=== PATIENT | male | born 1990 | race Caucasian/White ===

== ENCOUNTER 2022-07-31 08:20 | Outpatient (REF) | payer OTHER, SELFPAY ==
[2022-07-31 09:17] LABS: Hematocrit 45.2 % (42.0-52.0); Mean Corpuscular HGB Conc 33.2 g/dl (31.0-36.0); Mean Corpuscular Hemoglobin 30.4 pg (27.0-33.0); Mean Corpuscular Volume 91.7 fL (80.0-98.0); Mean Platelet Volume 10.7 fL (9.4-12.4); Platelet Count 314 X10*3/uL (160-400); Red Blood Count 4.93 X10*6/uL (4.60-5.80); Red Cell Distribution Width 12.4 % (11.0-16.0); White Blood Count 12.8 X10*3/uL (4.8-10.8)
[2022-07-31 09:43] LABS: Estimated Average Glucose 94 mg/dL; Hemoglobin A1c % 4.9 %
[2022-07-31 09:58] LABS: Alanine Aminotransferase 44 U/L (0-40); Albumin Level 4.3 g/dL (3.5-5.0); Alkaline Phosphatase 97 U/L (39-117); Anion Gap 13 (12-20); Aspartate Amino Transferase 23 U/L (5-37); Bilirubin Total 0.9 mg/dL (0.0-1.0); Blood Urea Nitrogen 13 mg/dL (9-16); Calcium 9.3 mg/dL (8.4-10.2); Carbon Dioxide 26 mmol/L (22-29); Chloride 107 mmol/L (96-108); Cholesterol 200 mg/dL; Estimated Glomerular Filt Rate > 60; Glucose Fasting 83 mg/dL (60-99); HDL Cholesterol 27 mg/dL; LDL Cholesterol Calculated 128 mg/dl; Potassium 4.4 mmol/L (3.3-5.1); Sodium 142 mmol/L (135-145); Total Protein 7.3 g/dL (6.5-8.0); Triglycerides 228 mg/dL
[2022-07-31 10:13] LABS: TSH reflex Free T4 1.67 uIU/mL (0.32-4.0)
== END 2022-07-31 08:21 | disposition home or self-care (01) ==
LOC: HO.LAB 08:20
PROVIDERS: PCP Physician Assistant; Visit Provider Physician Assistant
DX: Z13.29 Encounter for screening for other suspected endocrine disorder (principal); E78.9 Disorder of lipoprotein metabolism, unspecified
CPT/HCPCS: 36415; 80053; 80061; 83036; 84443; 85027

== ENCOUNTER → 2022-09-07 11:01 | Outpatient (BNVA) | payer OTHER, SELFPAY | PROVIDERS: PCP Physician Assistant; Visit Provider Anesthesiology ==

== ENCOUNTER 2023-02-10 11:05 | Outpatient (AMB) | payer OTHER, SELFPAY ==
[2023-02-10 11:08] VITALS: BP 124/80; PULSE 102; O2SAT 97; BMI 48.8
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
== END 2023-02-10 12:43 | disposition home or self-care (01) ==
PROVIDERS: Visit Provider Physician Assistant
DX: E66.01 Morbid (severe) obesity due to excess calories (principal); Z68.42 Body mass index [BMI] 45.0-49.9, adult; E78.9 Disorder of lipoprotein metabolism, unspecified; M72.2 Plantar fascial fibromatosis
CPT/HCPCS: 99214

== ENCOUNTER 2023-08-11 11:04 | Outpatient (AMB) | payer OTHER, SELFPAY ==
[2023-08-11 11:10] VITALS: BP 130/76; PULSE 94; O2SAT 96; BMI 45.5
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
== END 2023-08-11 11:42 | disposition home or self-care (01) ==
PROVIDERS: PCP Physician Assistant; Visit Provider Physician Assistant
DX: M72.2 Plantar fascial fibromatosis (principal); E66.01 Morbid (severe) obesity due to excess calories; Z68.42 Body mass index [BMI] 45.0-49.9, adult; E78.9 Disorder of lipoprotein metabolism, unspecified; M79.641 Pain in right hand
CPT/HCPCS: 99214

== ENCOUNTER 2023-08-19 12:00 | Emergency (ER) | payer OTHER, SELFPAY ==
--- NOTE | ~2023-08-19 | XR_ITS ---
EXAMINATION: XR FINGER, LEFT CLINICAL INFORMATION: Laceration to second digit. COMPARISON: None available. TECHNIQUE: 3 radiographs of the left second digit were performed. FINDINGS: No fracture or dislocation. No radiopaque foreign object is identified within the soft tissues. XR/XR finger LT min 2V IMPRESSION: No fracture or dislocation. No radiopaque foreign object is identified within the soft tissue.
[2023-08-19 12:24] VITALS: BP 139/99; PULSE 96; RESP 18; TEMP 36.7; O2SAT 96; BMI 44.2
--- NOTE | 2023-08-19 12:25 | ED.UPPEXIN ---
HPI - Extremity Injury (Upper) General Chief Complaint: Wound/Laceration Stated Complaint: Finger lac Time Seen by Provider: 08/19/23 13:59 Source: patient Mode of arrival: ambulatory Limitations: no limitations History of Present Illness ED Provider: Kathy Quezada NP HPI narrative: Patient is a 33-year-old right-hand dominant male presenting to the emergency department with laceration to left index finger. Reports accidentally sliced it wall food prepping at home. Needed to wait until someone could come to watch this child before he could come to the emergency department for treatment. Unsure last tetanus. Denies any numbness or tingling. States took some time at home to get bleeding to stop. MD complaint: injury to: left and finger Onset (ago): hour(s) Handedness: right Place: home Context: laceration Treatments prior to arrival: bandage Related Data Previous Rx's ?Medication ?Instructions ?Recorded meloxicam 15 mg tablet 15 mg PO DAILY 30 days #30 tabs 07/06/23 pantoprazole 40 mg tablet,delayed 40 mg PO DAILY 30 days #30 tabs 08/02/23 release tramadol 50 mg tablet 50 mg PO DAILY PRN pain 30 days 08/11/23 #30 tabs Allergies Allergy/AdvReac Type Severity Reaction Status Date / Time No Known Allergies Allergy Verified 08/19/23 12:25 Review of Systems Review of Systems: As per HPI. Yes all other systems are reviewed and are negative Constitutional: Constitutional: Reports as per HPI [facility] Past Medical History Surgical History History of surgery on lower extremity Social History Social History Housing: Apartment Alcohol intake: never Patient Tobacco Use Status: Never used Tobacco Tobacco use type: Cigarette e-Cigarette/Vaping Use: Never Used Second Hand Smoke Exposure: No Advance Directives: No Do you have a plan to hurt others: No Plan service: No Current occupational status: employed Cognitive needs: No Hearing needs: No Vision needs: No Physical Exam Vital Signs: Vital Signs: Last Vital Signs Temp 98.0 F 08/19/23 12:24 Pulse 96 08/19/23 12:24 Resp 18 05/23/24 12:24 BP 139/99 H 08/19/23 12:24 Pulse Ox 96 08/19/23 12:24 O2 Del Method Room Air 08/19/23 12:24 BMI result Body Mass Index 44.2 Vital signs have been reviewed and appear to be correct. Blood pressure normal. Heart rate normal. Respiratory rate normal. Temperature normal. Oxygen saturation normal. Const: General: cooperative, healthy appearing and no acute distress Orientation/consciousness: oriented to person, oriented to place, oriented to time and patient oriented x3 Limitations: no limitations HEENT: Head: Yes normocephalic and Yes atraumatic Ears: external ears normal General nose exam: Normal external nose present Face and sinus: Yes face symmetric Mouth: oropharynx normal and moist mucous membranes Throat: Yes uvula midline Eyes: Pupils: Equal, round and reactive pupils present Neck: Neck: Yes normal visual inspection and Yes supple Resp: Effort & Inspection: normal respiratory effort and able to speak in complete sentences Auscultation: clear to auscultation bilaterally Cardio: Rate: regular rate Rhythm: regular rhythm Heart sounds: S1 normal heart sound present and S2 normal heart sound present Skin: General skin exam: elasticity normal and turgor normal Neuro: General: oriented to person, oriented to place, oriented to time, patient oriented x3, moves all extremities, no focal motor deficits and CN's II-XI intact bilaterally Cranial nerves: Yes Equal, round and reactive pupils present Cognition (Neuro): normal cognition Extrem: General: Yes full ROM, Yes no pedal edema and Yes no calf tenderness Left upper extremity: hand Details: normal capillary refill, neuromotor exam normal, neurosensory exam normal and laceration 2nd digit radial aspect distal Details: flap (1cm); no foreign body present and not contaminated Psych: Mental Status: mental status grossly normal Affect: normal affect Thought process: Normal thought process present Course Course Course Narrative: This is a Rapid Medical Examination (RME) performed by Neil Lew PA-C in triage. Full HPI, ROS, assessment and treatment plan per primary provider in the Main ED. 33 yo right hand dominant male here w/ lac to left 2nd digit sustained [employer] while slicing potato at home. tetanus not UTD. 2-2.5 cm lac noted to finger pad of left second digit. bleeding controlled in triage. full ROM intact to left second digit. Plan: xr, tetanus booster Medications Administered Discontinued Medications Generic Name Dose Route Start Last Admin Trade Name Rin PRN Reason Stop Dose Admin Bacitracin 1 appl 08/19/23 14:00 08/19/23 14:16 Bacitracin Oint 0.9 Gm Packet TOPICAL 08/19/23 14:01 1 appl ONCE ONE Administration Protocol Diphtheria/Tetanus/Acell Pertussis 0.5 ml 08/19/23 13:59 08/19/23 14:15 Diphth,Pertus(Acell),Tet Adult 0.5 Ml Syringe IM 08/19/23 14:00 0.5 ml .ONCE ONE Administration Lidocaine HCl 5 ml 08/19/23 13:59 08/19/23 14:15 Lidocaine Hcl 1 % Mpf 5 Ml Vial INFILTRATI 08/19/23 14:00 5 ml ONCE ONE Administration Medical Decision Making Medical Decision Making [facility] Narrative: Patient is a 33-year-old right-hand dominant male presenting to the emergency department with laceration to left index finger. On exam patient is awake, A+Ox3, VS WNL, afebrile, normal neurological exam without focal deficits, physical exam findings as above. Given reported symptoms and physical exam findings, initial differential includes laceration, fracture. X-ray notable for no evidence of fracture on my review. Radiologist's interpretation pending, will contact patient if this differs from my interpretation. Dressing changes and wound care discussed with patient at bedside. Advised patient sutures need to be removed. Return precautions discussed at bedside laceration repaired as per procedure note. Tdap updated. Patient verbalized understanding of and agreement with plan. Differential Diagnosis Differential Diagnoses: The differential diagnosis associated with the presentation includes As per MDM. Independent Interpretation I performed an independent interpretation of an: Plain X-Ray Interpretation: No evidence of fracture on my review left index finger External Record Review External record reviewed: Inpatient record, Office record and Outpatient record Procedures Laceration Laceration 1: Site: hand Side (If applicable): left Size (cm): 1 Description: flap Depth: simple, single layer Local Anesthetic: lidocaine 1% Amount of anesthesia used (mL): 3 Pre-repair: wound explored, irrigated extensively and deep structures intact Skin layer closed with: other (Prolene) Size (cm): 5-0 Number of sutures: 5 Technique: simple, interrupted Discharge Plan Discharge Clinical Impression: Laceration of finger of left hand Patient Disposition: Home, Self-Care Instructions: Laceration (DC), Finger Laceration (ED), Care For Your Stitches (DC), Stitches Removal (ED) Additional Instructions: You have been evaluated in the emergency department today for a laceration to your finger. Your laceration was repaired in the emergency department with sutures. Please keep the area surrounding the laceration clean and dry and keep dressing in place for the next 24 hours. After that please change the dressing and assess the wound daily. Keep the area out of direct sunlight for the next 6 months to help prevent scarring. You should have the sutures removed in 7-10 days. If you develop fever, redness, swelling at the site of your laceration, or thick yellow drainage please come back to the ER for a wound check. Prescriptions: No Action meloxicam 15 mg tablet 15 mg PO DAILY 30 Days Qty: 30 3RF pantoprazole 40 mg tablet,delayed release (DR/EC) 40 mg PO DAILY 30 Days Qty: 30 1RF tramadol 50 mg tablet 50 mg PO DAILY PRN (Reason: pain) 30 Days Qty: 30 1RF Stand Alone Forms: Work/School Release Print Language: Frisian
[2023-08-19] MEDS: Diphth,Pertus(ACell),Tet Adult 0.5 ML SYRINGE IM (14:15)
[2023-08-19] MEDS: Lidocaine HCl 1 % MPF 5 ML VIAL INFILTRATI (14:15)
[2023-08-19] MEDS: Bacitracin Oint 0.9 GM PACKET 1 APPL TOPICAL (14:16)
== END 2023-08-19 15:04 | disposition home or self-care (01) ==
PROVIDERS: Emergency Provider Emergency Medicine; PCP Physician Assistant
DX: S61.211A Laceration without foreign body of left index finger without damage to nail, initial encounter (principal); W26.9XXA Contact with unspecified sharp object(s), initial encounter; Y93.G1 Activity, food preparation and clean up; Y92.009 Unspecified place in unspecified non-institutional (private) residence as the place of occurrence of the external cause; Y99.9 Unspecified external cause status; Z23 Encounter for immunization
CPT/HCPCS: 12001; 73140; 90471; 90715; 99284

== ENCOUNTER 2023-09-14 07:26 | Outpatient (REF) | payer OTHER, SELFPAY ==
--- NOTE | ~2023-09-14 | XR_ITS ---
EXAMINATION: XR HAND, RIGHT CLINICAL INFORMATION: Pain COMPARISON: None available. TECHNIQUE: PA, lateral, and oblique views of the right hand. FINDINGS: There is questionable undisplaced fracture through the midshaft of fifth metacarpal bone. There is mild erosive changes at the distal metadiaphysis of fifth metacarpal bone and narrowing of the joint space of the fifth carpometacarpal joint. XR/XR hand RT 2V IMPRESSION: Most likely undisplaced fracture through the fifth metacarpal bone questionably erosive changes
[2023-09-14 08:13] LABS: Hemoglobin 14.4 g/dl (14.0-18.0); Mean Corpuscular HGB Conc 33.5 g/dl (31.0-36.0); Mean Corpuscular Hemoglobin 30.5 pg (27.0-33.0); Mean Corpuscular Volume 91.1 fL (80.0-98.0); Mean Platelet Volume 10.6 fL (9.4-12.4); Platelet Count 303 X10*3/uL (160-400); Red Blood Count 4.72 X10*6/uL (4.60-5.80); Red Cell Distribution Width 12.7 % (11.0-16.0); White Blood Count 13.1 X10*3/uL (4.8-10.8)
[2023-09-14 09:09] LABS: Alanine Aminotransferase 28 U/L (0-40); Albumin Level 4.3 g/dL (3.5-5.0); Alkaline Phosphatase 91 U/L (39-117); Anion Gap 15 (12-20); Aspartate Amino Transferase 18 U/L (5-37); Bilirubin Total 1.5 mg/dL (0.0-1.0); Blood Urea Nitrogen 19 mg/dL (9-16); Calcium 9.5 mg/dL (8.4-10.2); Carbon Dioxide 24 mmol/L (22-29); Chloride 108 mmol/L (96-108); Cholesterol 168 mg/dL (<200); Estimated Glomerular Filt Rate > 60; Glucose Fasting 80 mg/dL (60-99); HDL Cholesterol 30 mg/dL (>40); LDL Cholesterol Calculated 118 mg/dL (<100); Potassium 4.4 mmol/L (3.3-5.1); Sodium 143 mmol/L (135-145); Total Protein 7.6 g/dL (6.5-8.0); Triglycerides 102 mg/dL (<150)
== END 2023-09-14 07:27 | disposition home or self-care (01) ==
LOC: HO.LAB 07:26
PROVIDERS: PCP Physician Assistant; Visit Provider Physician Assistant
DX: M79.641 Pain in right hand (principal); E78.9 Disorder of lipoprotein metabolism, unspecified; Z13.1 Encounter for screening for diabetes mellitus
CPT/HCPCS: 36415; 73120; 80053; 80061; 85027

== ENCOUNTER 2023-09-22 08:05 | Outpatient (AMB) | payer OTHER, SELFPAY ==
--- NOTE | 2023-09-22 08:12 | MHC.OFFVIS ---
Vital Signs 09/22/23 08:13 Height 5 ft 5 in Weight 257 lb BMI 42.8 BP 126/75 Blood Pressure Location Rt brachial Position Sitting Pulse 93 Intake Visit Reasons: EIC~ R flank Intake Note: Patient referred by pcp Rick Vásquez PA-C for cyst on Rt flank. Present for 2wks. Patient c/o: oozing, bleeding 1wk ago. Applying gauze and pressure bandage. Facility Designer Required: No Accompanied by: Self / Same As Patient Allergies No Known Allergies Allergy (Verified 09/22/23 08:12) Medication List - Last Reconciled 09/22/23 by Duane Terrell MD meloxicam 15 mg PO DAILY 30 days pantoprazole 40 mg PO DAILY 30 days tramadol 50 mg PO DAILY PRN 30 days HPI Comments Details: Patient presents with 2 week history of a right flank abscess. It has been draining pus and gotten more painful, red, and hot. He has never had this before. Chart was reviewed and patient evaluated [facility] Surgical History History of surgery on lower extremity Social History Housing: Apartment Alcohol intake: never Patient Tobacco Use Status: Never used Tobacco Tobacco use type: Cigarette e-Cigarette/Vaping Use: Never Used Second Hand Smoke Exposure: No service: No Current occupational status: employed Cognitive needs: No Hearing needs: No Vision needs: No Physical Exam Vital Signs: Last Vital Signs Pulse 93 09/22/23 08:13 BP 126/75 09/22/23 08:13 BMI result Body Mass Index 42.8 Chest Other: Patient is a proximally 4 x 3 cm complex/large infected sebaceous cyst abscess. Office Procedures I&D Drain Details: Risks, benefits, alternatives of incision drainage of right flank complex infected sebaceous cyst reviewed with the patient and included but not limited to bleeding, infection recurrence, numbness, pain, scarring the patient wished to proceed. All questions answered. After appropriate positioning, patient underwent 1% lidocaine and Betadine prepped and a transverse incision made over this proximally 4 x 3 cm infected sebaceous abscess. Copious amounts of purulent material were retrieved. Cultures were obtained. Wound was irrigated, secured hemostasis, packed, and dressing applied. Patient tolerated procedure well. 65738-Pvuevsyp of Skin Abscess, complex All charges added?: Procedure code (CPT) selection complete Assessment & Plan Assessment & Plan (1) Infected sebaceous cyst: Code(s): L72.3 - Sebaceous cyst; L08.9 - Local infection of the skin and subcutaneous tissue, unspecified Category: Surgical Plan: Patient has been given local instructions including arrangements with Pa for VNA services and packing changes, analgesics, antibiotics, patient will see me as directed or p.r.n.. All questions answered. Orders: Orders AMB Incision & Drainage Today L08.9 - Local infection of the skin and subcutaneous tissue, unspecified, L72.3 - Sebaceous cyst Medications: New cephalexin 500 mg PO TID 30 caps 0RF hydrocodone-acetaminophen 5-325 mg Partial Fill upon patient request. 1 tab PO Q4-6H PRN 30 tabs 0RF pain Coding Level of Care Code New Pt Level 5 (32379) Diagnoses Infected sebaceous cyst L72.3; L08.9 CPT Codes I&D Drain - Drain 2: 66838-Gvliiyde of Skin Abscess, complex ([id number])
[2023-09-22 08:13] VITALS: BP 126/75; PULSE 93; BMI 42.8
== END 2023-09-22 08:25 | disposition home or self-care (01) ==
PROVIDERS: PCP Physician Assistant; Referring Provider Physician Assistant; Visit Provider Surgery
DX: L72.3 Sebaceous cyst (principal); L08.9 Local infection of the skin and subcutaneous tissue, unspecified
CPT/HCPCS: 10060; 99203

== ENCOUNTER 2023-09-22 08:05 | Outpatient (REF) | payer OTHER, SELFPAY | END 2023-09-22 08:06 | disposition home or self-care (01) | LOC: HO.LAB 08:05 | PROVIDERS: PCP Physician Assistant; Referring Provider Physician Assistant; Visit Provider Surgery | DX: L72.3 Sebaceous cyst (principal); L08.9 Local infection of the skin and subcutaneous tissue, unspecified | CPT/HCPCS: 10060; 87070; 87077; 87186; 87205 ==

== ENCOUNTER → 2023-09-23 10:29 | Outpatient (BNVA) | payer OTHER, SELFPAY | PROVIDERS: PCP Physician Assistant; Visit Provider Surgery | DX: Z48.01 Encounter for change or removal of surgical wound dressing (principal) | CPT/HCPCS: 99211 ==

== ENCOUNTER → 2023-09-24 11:11 | Outpatient (BNVA) | payer OTHER, SELFPAY | PROVIDERS: PCP Physician Assistant; Visit Provider Surgery | DX: Z48.00 Encounter for change or removal of nonsurgical wound dressing (principal) | CPT/HCPCS: 99211 ==

== ENCOUNTER 2023-09-29 09:11 | Outpatient (AMB) | payer OTHER, SELFPAY ==
--- NOTE | 2023-09-29 09:18 | MHC.OFFVIS ---
Intake Visit Reasons: EIC~ R flank Intake Note: Patient here for s/p 1wk I&D on Rt flank. Reports improvement. Almost finished Cephalexin course. Patient c/o: reports site is almost completely healed. Rehabilitation Attendant Required: No Accompanied by: Spouse Allergies No Known Allergies Allergy (Verified 09/29/23 09:19) HPI Comments Details: Patient presents with his and child. Status post I&D right flank abscess. Patient is doing well. Symptoms markedly improved. Completing antibiotic course. Undergoing local wound care. [facility] Surgical History History of surgery on lower extremity Social History Housing: Apartment Alcohol intake: never Patient Tobacco Use Status: Never used Tobacco Tobacco use type: Cigarette e-Cigarette/Vaping Use: Never Used Second Hand Smoke Exposure: No service: No Current occupational status: employed Cognitive needs: No Hearing needs: No Vision needs: No Physical Exam Skin Other: Wound healing well. Complete resolution of cellulitis. Granulating tissue. Wound was probed and no residual purulent pockets demonstrated Assessment & Plan Assessment & Plan (1) Postop check: Code(s): Z09 - Encounter for follow-up examination after completed treatment for conditions other than malignant neoplasm Category: Surgical Plan Patient is continue local therapy and we will see me in proximally 3 weeks' time for follow-up. Discussion was briefly had regarding eventual excision of this sebaceous cyst in the future. All questions answered. Patient will see me as directed or p.r.n.. Coding Level of Care Code Global (50243) Diagnoses Postop check Z09
== END 2023-09-29 09:30 | disposition home or self-care (01) ==
PROVIDERS: PCP Physician Assistant; Visit Provider Surgery
DX: Z09 Encounter for follow-up examination after completed treatment for conditions other than malignant neoplasm (principal)
CPT/HCPCS: 99024

== ENCOUNTER → 2023-09-29 09:11 | Outpatient (BNVA) | payer OTHER, SELFPAY | PROVIDERS: PCP Physician Assistant; Visit Provider Surgery ==

== ENCOUNTER 2023-10-06 08:16 | Outpatient (REF) | payer OTHER, SELFPAY ==
--- NOTE | ~2023-10-06 | XR_ITS ---
EXAMINATION: XR HAND, RIGHT CLINICAL INFORMATION: Hand pain COMPARISON: 09/14/2023 hand radiograph TECHNIQUE: 3 views of the hand FINDINGS: Interval decrease in conspicuity of a subtle lucency through the fifth metatarsal diaphysis which differential considerations could include a healing nondisplaced fracture or nutrient channel. Loss of fifth MCP joint space with punched out periarticular erosions involving head of the fifth metacarpal and base of the fifth proximal phalanx suggestive of erosive arthropathy such as rheumatoid arthritis. Soft tissues are unremarkable. XR/XR hand RT min 3V IMPRESSION: 1. Interval decrease in conspicuity of a subtle lucency through the fifth metatarsal diaphysis which differential considerations could include a healing nondisplaced fracture or nutrient channel. 2. Loss of fifth MCP joint space with punched out periarticular erosions involving head of the fifth metacarpal and base of the fifth proximal phalanx suggestive of erosive arthropathy such as rheumatoid arthritis.
== END 2023-10-06 08:17 | disposition home or self-care (01) ==
LOC: HO.HOSX 08:16
PROVIDERS: Visit Provider Orthopaedic Surgery
DX: M79.641 Pain in right hand (principal)
CPT/HCPCS: 73130

== ENCOUNTER 2023-10-06 12:54 | Outpatient (AMB) | payer OTHER, SELFPAY ==
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
[2023-10-06 13:16] VITALS: BMI 42.8
== END 2023-10-06 15:00 | disposition home or self-care (01) ==
PROVIDERS: PCP Physician Assistant; Visit Provider Orthopaedic Surgery
DX: M79.641 Pain in right hand (principal); M25.641 Stiffness of right hand, not elsewhere classified; G89.4 Chronic pain syndrome
CPT/HCPCS: 99204

== ENCOUNTER 2023-11-03 09:22 | Outpatient (REF) | payer OTHER, SELFPAY | END 2023-11-03 09:23 | disposition home or self-care (01) | LOC: HO.HOSX 09:22 | PROVIDERS: Visit Provider Orthopaedic Surgery | DX: Z13.89 Encounter for screening for other disorder (principal) ==

== ENCOUNTER 2024-02-16 13:43 | Outpatient (AMB) | payer OTHER, SELFPAY ==
[2024-02-16 13:44] VITALS: BP 128/80; PULSE 104; O2SAT 98; BMI 43.0
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
== END 2024-02-16 14:17 | disposition home or self-care (01) ==
PROVIDERS: PCP Physician Assistant; Visit Provider Physician Assistant
DX: Z00.00 Encounter for general adult medical examination without abnormal findings (principal); M79.671 Pain in right foot; G89.29 Other chronic pain; M72.2 Plantar fascial fibromatosis; Z13.1 Encounter for screening for diabetes mellitus; E78.9 Disorder of lipoprotein metabolism, unspecified

== ENCOUNTER → 2024-02-16 13:43 | Outpatient (BNVA) | payer OTHER, SELFPAY | PROVIDERS: PCP Physician Assistant; Visit Provider Physician Assistant | DX: Z00.00 Encounter for general adult medical examination without abnormal findings (principal); G89.29 Other chronic pain; M79.671 Pain in right foot; M72.2 Plantar fascial fibromatosis; E78.9 Disorder of lipoprotein metabolism, unspecified | CPT/HCPCS: 96127 ==

== ENCOUNTER 2024-08-16 09:10 | Outpatient (AMB) | payer OTHER, SELFPAY ==
[2024-08-16 09:18] VITALS: BP 132/84; PULSE 101; TEMP 36.1; O2SAT 97; BMI 42.3
--- NOTE | 2024-08-16 09:18 | MHC.PC.OV ---
Vital Signs 08/16/24 09:18 Height 5 ft 5 in Weight 254 lb 4 oz BMI 42.3 BP 132/84 Blood Pressure Location Lt brachial Position Sitting Pulse 101 H Pulse Source Pulse Oximeter Temp 97.0 F Temp Source Temporal Artery Scan Pulse Oximetry (%) 97 Oxygen Delivery Method Room Air Intake Visit Reasons: f/u foot pain Allergies No Known Allergies Allergy (Verified 08/16/24 09:47) Medication List - Last Reconciled 08/16/24 by Rick Vásquez PA-C acetaminophen ER (Tylenol Arthritis Pain) 650 mg PO Q12H PRN 30 days dgdcarmbuk-krnhwxarocfyc-pwmp 50-325-40 mg 1 cap PO Q6H PRN 3 days meloxicam 15 mg PO DAILY 30 days pantoprazole 40 mg PO DAILY 30 days tramadol 50 mg PO DAILY PRN 30 days Tobacco use date assessed: 02/16/24 Dental Screening Dental Screen Date: 02/16/24 HPI f/u foot pain HPI Details Patient is a 34-year-old male here today for a follow-up visit Patient's past medical history significant for borderline high cholesterol, traumatic right femur fracture, HOLLIE and obesity. Concerns--> Jayden reports symptoms associated with possible carpal tunnel syndrome in his right hand. His symptoms include numbness, tingling, pain, and weakness, which have intensified over time. The patient's condition began mildly but has progressed to becoming markedly severe, with functional limitations in grasping and holding objects. He has attempted self-management with daxc-quu-ykaswbd anti-inflammatory and arthritis medications but reports symptom resurgence when medication use is paused. 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 He reports he is working a lot more as he picked up a 2nd part-time job due to financial constraints in his personal life. He does use meloxicam with decent affect and p.r.n. use of tramadol. He does use tramadol on an as needed basis for pain scales of 9-10. HOLLIE: Has been given a CPAP machine though has been unable to purchase new accessories for CPAP machine thus has not been using CPAP machine over last several years.? He still believes he suffers from sleep apnea as he reports often waking up several times at night and not getting restful sleep. ? Was followed by pulmonology in the past and would like to reestablish care for his obstructive sleep apnea. . Class 3 Obesity:? He continues to try to lose weight though due to stress working 2 jobs he has not been able to stay focused on his weight loss journey.. Patient does understand his BMI is over 30 and admits that he needs to be more physically active though is hindered by his lower extremity traumatic injury. [facility] Surgical History History of surgery on lower extremity Social History Housing: Apartment Alcohol intake: current Alcohol intake frequency: holidays/special occasions only Alcohol type: beer Patient Tobacco Use Status: Never used Tobacco Tobacco use type: Cigarette e-Cigarette/Vaping Use: Never Used Second Hand Smoke Exposure: No service: No Current occupational status: employed Current occupation: [employer] Cognitive needs: No Hearing needs: No Vision needs: No Questionnaire PHQ-9 Over the last 2 weeks, how often have you been bothered by any of the following problems? 1. Little interest or pleasure in doing things: not at all 2. Feeling down, depressed, or hopeless: not at all 3. Trouble falling or staying asleep, or sleeping too much: not at all 4. Feeling tired or having little energy: not at all 5. Poor appetite or overeating: not at all 6. Feeling bad about yourself - or that you are a failure or have let yourself or your family down: not at all 7. Trouble concentrating on things, such as reading the newspaper or watching television: not at all 8. Moving or speaking so slowly that other people could have noticed. Or the opposite - being so fidgety or restless that you have been moving around a lot more than usual: not at all 9. Thoughts that you would be better off or of hurting yourself in some way: not at all Total score: 0 Depression Screening Interpretation: Negative Depression Screening Done: Yes 25794 - PHQ-9 Billing: Yes Source: Developed by Drs. Jeyson LSamina Rosen Kurt Kroenke and colleagues, with an educational shante from [employer]. Thrive Questionnaire Date Thrive assessed: 08/09/24 I am a: Patient What is your living situation today?: I have a steady place to live Within the past 12 months, did you worry whether your food would run out before you got money to buy more?: Never true Do you have trouble paying for medicines?: No Do you have trouble getting transportation to medical appointments?: No Do you have trouble paying your heating and electricity bill?: No Do you have trouble taking care of your child, family member or friend?: No Do you have trouble with day-to-day activities such as bathing, preparing meals, shopping, managing finances, etc.?: No THRIVE Score: 0 AUDIT C Alcohol Use Questionnaire (AUDIT-C) 1. How often do you have a drink containing alcohol?: Monthly or less 2. How many drinks containing alcohol do you have on a typical day when you are drinking?: 3 or 4 3. How often do you have six or more drinks on one occasion?: Less than monthly Total Score: 3 ELAINE-7 AMB Questionnaire ELAINE-7 Date ELAINE - 7 assessed: 08/16/24 Feeling nervous, anxious, or on edge: 0 = Not at all Not being able to stop or control worryin = Not at all Worrying too much about different things: 3 = Nearly every day Trouble relaxin = More than half the days Being so restless that it is hard to sit still: 0 = Not at all Becoming easily annoyed or irritable: 0 = Not at all Feeling afraid as if something awful might happen: 0 = Not at all Total ELAINE-7 score (0-4 normal; 5-9 mild; 10-14 moderate; 15-21 severe): 5 Source: Developed by Drs. Jeyson Hawkins, Chadwick Rogers and colleagues, with an educational shante from [employer]. ELAINE-7 Assessment Billing ELAINE-7 Assessment Tool: ELAINE-7 Assessment 55364 Review of Systems Const Denies headache(s) Eyes Denies loss of vision ENT Denies vertigo, Denies dizziness, Denies headache(s) and Denies sore throat Card Denies chest pain, Denies leg edema and Denies lightheadedness Resp Denies cough, Denies hemoptysis and Denies wheezing GI Denies abdominal pain, Denies melena, Denies constipation, Denies diarrhea and Denies vomiting Denies dysuria, Denies urinary frequency and Denies urinary urgency Musc Denies arthralgias, Denies joint swelling, Denies numbness and Denies tingling Neuro Denies Abnormal speech present, Denies behavioral changes, Denies vertigo, Denies dizziness, Denies headache(s), Denies loss of vision, Denies memory loss, Denies numbness and Denies tingling Psych Denies anxiety, Denies behavioral changes, Denies depression, Denies memory loss and Denies panic attacks Rony/Lymph Denies easy bleeding and Denies easy bruising Aller/Immun Denies wheezing Physical exam (Primary Care) Vital Signs: Last Vital Signs Temp 97.0 F 08/16/24 09:18 Pulse 101 H 08/16/24 09:18 BP 132/84 08/16/24 09:18 Pulse Ox 97 08/16/24 09:18 Oxygen Delivery Method Room Air 08/16/24 09:18 BMI result Body Mass Index 42.3 Tobacco/Smoking Status: Tobacco use Status Tobacco use date assessed 02/16/24 08/16/24 09:21 Patient Tobacco Use Status Never used Tobacco 08/16/24 09:21 Tobacco use type Cigarette 08/16/24 09:21 e-Cigarette/Vaping Use Never Used 08/16/24 09:21 PHQ-9: PHQ-9 Score PHQ-9: Total score 0 08/16/24 09:21 Depression Screening Interpretation: Negative Thrive Assessment: Date of Thrive Assessment Date Thrive assessed 08/09/24 08/16/24 09:21 Const General: healthy appearing, no acute distress, alert and awake Nutritional Appearance: well nourished Orientation/consciousness: oriented to person, oriented to place and oriented to time HENMT Ears: TM's normal bilaterally General nose exam: Normal nasal mucous membranes and turbinates present Eyes Conjunctivae: conjunctivae normal Sclerae: sclerae normal Pupils: Equal, round and reactive pupils present Neck Neck: Yes no lymphadenopathy and Yes no JVD Thyroid: Thyroid normal Carotids: no bruits Resp Effort & Inspection: normal respiratory effort and not tachypneic Auscultation: no crackles, no rales, no rhonchi and no wheezes Cardio Rate: regular rate Rhythm: regular rhythm Heart sounds: no murmurs and normal S1 and S2 GI Palpation (GI): Soft to palpation, nontender, no hepatomegaly and no splenomegaly Auscultation: normal bowel sounds Skin General skin exam: no rashes or lesions noted and dry skin Neuro General: oriented to person, oriented to place and oriented to time Cranial nerves: Yes Equal, round and reactive pupils present Speech: No Abnormal speech present Gait exam (Neuro): Normal gait present Motor exam (neuro): no tremor noted Extrem Right upper extremity: full ROM Left upper extremity: full ROM Right lower extremity: full ROM; no edema Left lower extremity: full ROM; no edema Psych Mental Status: mental status grossly normal Speech and movement: Normal speech and movement present Affect: normal affect Attitude: cooperative Thought process: Normal thought process present Coding Level of Care Code Est Pt Level 4 (40414) Diagnoses Right hand paresthesia R20.2 Plantar fasciitis, bilateral M72.2 Borderline high cholesterol E78.9 Class 3 obesity E66.813 ELAINE (generalized anxiety disorder) F41.1 Additional Codes ELAINE-7 Assessment Billing - ELAINE-7 Assessment Tool: ELAINE-7 Assessment 92570 ([id number]) PHQ-9 - 67850 - PHQ-9 Billing: Yes ([id number]) Assessment & Plan Assessment & Plan (1) Right hand paresthesia: Code(s): R20.2 - Paresthesia of skin Category: Medical Plan: An EMG is planned for further diagnostic evaluation. Referral to orthopedics will follow for potential intervention. Continue symptom monitoring with attention to occupational adjustments and manage with [id number]-umo-[id number] medication as needed. (2) Plantar fasciitis, bilateral: Code(s): M72.2 - Plantar fascial fibromatosis Category: Medical Plan: He does report his plantar fascia pain has been more manageable with medication. (3) Borderline high cholesterol: Code(s): E78.9 - Disorder of lipoprotein metabolism, unspecified Category: Medical Plan: Has a history of borderline high cholesterol. Most recent fasting lipid panel showing good control of his total cholesterol and LDL. He will continue working on dietary modifications. (4) Class 3 obesity: Code(s): E66.813 - Obesity, class 3 Category: Medical Plan: Patient does understand his BMI is over 40 and will work on being more physically active and adapt to better eating habits to reduce his weight (5) ELAINE (generalized anxiety disorder): Code(s): F41.1 - Generalized anxiety disorder Category: Medical Plan: Patient's ELAINE-7 score positive for anxiety which has been a bit of a existing condition for him. He does report most stiff his stresses is financial related Orders: Orders NE nerve conduction velocity Today R20.2 - Paresthesia of skin NE electromyogram (EMG) Today R20.2 - Paresthesia of skin
== END 2024-08-16 10:03 | disposition home or self-care (01) ==
LOC: HO.HMCH 09:10
PROVIDERS: PCP Physician Assistant; Visit Provider Physician Assistant
DX: R20.2 Paresthesia of skin (principal); Z68.41 Body mass index [BMI] 40.0-44.9, adult; E66.813 Obesity, class 3; M72.2 Plantar fascial fibromatosis; E78.9 Disorder of lipoprotein metabolism, unspecified; F41.1 Generalized anxiety disorder

== ENCOUNTER → 2024-08-16 09:10 | Outpatient (BNVA) | payer OTHER, SELFPAY | PROVIDERS: PCP Physician Assistant; Visit Provider Physician Assistant | DX: G56.01 Carpal tunnel syndrome, right upper limb (principal); E78.00 Pure hypercholesterolemia, unspecified; G47.33 Obstructive sleep apnea (adult) (pediatric); E66.9 Obesity, unspecified; M72.2 Plantar fascial fibromatosis; E66.813 Obesity, class 3; R20.2 Paresthesia of skin; F41.1 Generalized anxiety disorder; Z87.81 Personal history of (healed) traumatic fracture; Z68.41 Body mass index [BMI] 40.0-44.9, adult; Z99.89 Dependence on other enabling machines and devices | CPT/HCPCS: 96127 ==

== ENCOUNTER 2024-09-26 08:37 | Outpatient (REF) | payer OTHER, SELFPAY ==
--- NOTE | 2024-09-26 08:39 | EMG_ITS ---
FINDINGS: The right median and ulnar motor and sensory studies were performed. Right radial sensory, ulnar dorsal sensory, and medial and lateral antecubital brachial sensory studies were performed and needle examination was performed. IMPRESSION: 1. Mild right median neuropathy across carpal tunnel. 2. No significant pathology noted on the ulnar side. Please see the attached neurophysiology report for details MD LONDON Lozano/ANNEL / [id number] MTDD
[2024-09-26 09:41] LABS: Hematocrit 42.1 % (42.0-52.0); Hemoglobin 14.2 g/dl (14.0-18.0); Mean Corpuscular HGB Conc 33.7 g/dl (31.0-36.0); Mean Corpuscular Hemoglobin 31.0 pg (27.0-33.0); Mean Corpuscular Volume 91.9 fL (80.0-98.0); NRBC Abs Auto 0.000 X10*3/uL (0.0-0.012); NRBC Pct Auto 0.0 /100WBC (0.0-0.2); Platelet Count 263 X10*3/uL (160-400); Red Blood Count 4.58 X10*6/uL (4.60-5.80); White Blood Count 9.6 X10*3/uL (4.8-10.8)
[2024-09-26 10:17] LABS: Alanine Aminotransferase 35 U/L (0-40); Albumin Level 4.7 g/dL (3.5-5.0); Alkaline Phosphatase 79 U/L (39-117); Anion Gap 13 (12-20); Aspartate Amino Transferase 21 U/L (5-37); Blood Urea Nitrogen 23 mg/dL (9-16); Calcium 9.0 mg/dL (8.4-10.2); Carbon Dioxide 23 mmol/L (22-29); Chloride 111 mmol/L (96-108); Cholesterol 170 mg/dL (<200); Estimated Glomerular Filt Rate > 60; HDL Cholesterol 28 mg/dL (>40); Potassium 4.0 mmol/L (3.3-5.1); Sodium 143 mmol/L (135-145); Total Protein 7.6 g/dL (6.5-8.0); Triglycerides 129 mg/dL (<150)
== END 2024-09-26 08:38 | disposition home or self-care (01) ==
LOC: HO.NEURO 08:37
PROVIDERS: PCP Physician Assistant; Visit Provider Physician Assistant
DX: R20.2 Paresthesia of skin (principal); R20.0 Anesthesia of skin; K21.9 Gastro-esophageal reflux disease without esophagitis; E78.9 Disorder of lipoprotein metabolism, unspecified; G56.11 Other lesions of median nerve, right upper limb
CPT/HCPCS: 36415; 80053; 80061; 85027; 95886; 95910

== ENCOUNTER → 2024-09-26 08:39 | Outpatient (BNV) | payer OTHER, SELFPAY | PROVIDERS: PCP Physician Assistant; Visit Provider Psychiatry & Neurology Neurology | DX: R94.131 Abnormal electromyogram [EMG] (principal) | CPT/HCPCS: 95886; 95910 ==